=== PATIENT | female | born 1985 | race Caucasian/White ===

== ENCOUNTER 2020-06-27 06:00 | Day surgery (SDC) | payer OTHER ==
[~2020-06-27] VITALS: Ht 160 cm; Wt 51.7 kg
[2020-06-27] MEDS ORDERED: PRENATAL CAPLE1 EAC1 PO (15:30)
== END 2020-06-27 13:00 | disposition home or self-care (01) ==
LOC: CIR.AMB 06:00 → EDSTATUS 14:00 → LDR 14:23
PROVIDERS: ATTEND Obstetrics & Gynecology
DX: O03.4 Incomplete spontaneous abortion without complication (principal); Z20.828 Contact with and (suspected) exposure to other viral communicable diseases

== ENCOUNTER 2021-05-23 09:00 | Outpatient (CLI) | payer OTHER ==
[~2021-05-23 09:00] MED LIST: PRENATAL CAPLE1 EAC1 PO
== END 2021-05-23 09:15 | disposition home or self-care (01) ==
LOC: PPH VACUNA 09:00
PROVIDERS: ATTEND Emergency Medicine Pediatric Emergency Medicine
DX: Z23 Encounter for immunization (principal)

== ENCOUNTER 2022-10-17 13:41 | Outpatient (CLI) | payer OTHER | END 2022-10-17 13:54 | disposition home or self-care (01) | LOC: SONOGRAMA 13:41 | PROVIDERS: ATTEND Obstetrics & Gynecology | DX: N63.21 Unspecified lump in the left breast, upper outer quadrant (principal); N63.12 Unspecified lump in the right breast, upper inner quadrant ==

== ENCOUNTER 2022-10-20 11:34 | Outpatient (CLI) | payer OTHER | END 2022-10-20 11:48 | disposition home or self-care (01) | LOC: RAD 11:34 | PROVIDERS: ATTEND Surgery | DX: D24.1 Benign neoplasm of right breast (principal); N60.11 Diffuse cystic mastopathy of right breast; N60.12 Diffuse cystic mastopathy of left breast ==

== ENCOUNTER 2023-04-06 07:57 | Outpatient (CLI) | payer OTHER | END 2023-04-06 08:05 | disposition home or self-care (01) | LOC: SONOGRAMA 07:57 | PROVIDERS: ATTEND Surgery | DX: N60.12 Diffuse cystic mastopathy of left breast (principal) ==

== ENCOUNTER 2025-01-20 12:53 | Outpatient (CLI) | payer OTHER | END 2025-01-20 12:57 | disposition home or self-care (01) | LOC: MAMO-SONO 12:53 | PROVIDERS: ATTEND Surgery | DX: N60.11 Diffuse cystic mastopathy of right breast (principal); N60.12 Diffuse cystic mastopathy of left breast ==